=== PATIENT | female | born 1990 | race Caucasian/White ===

== ENCOUNTER 2017-05-27 10:25 | Inpatient (IN) | payer MEDICAID ==
[~2017-05-27] VITALS: Ht 165.1 cm; Wt 56.7 kg
--- NOTE | 2017-05-27 10:55 | NUR ---
LOW BACK PAIN X 2 WKS, DENEIS DYSURIA, NO HEMATURIA. ORAL TEMP-102 'F COLD SWEATS, HEADACHE X 2 DAYS. H/O KIDNEY REFLUX DSE A KID, NAD NOTED, VSS, RESP EVEN AND UNLABORED, PT WAS PUT ON MONITOR AND HOSPITAL GOWN, WAITING FOR MD ORDER.
[2017-05-27] MEDS ORDERED: ONDANSETRON HCL/PF 4 MG/2 ML VIAL IVP ONE (11:30)
[2017-05-27] MEDS ORDERED: IV NS 0.9% 1,000 ML BAG IV ONE (11:30)
[2017-05-27] MEDS ORDERED: MORPHINE SULFATE INJ 2 MG/ML DISP.SYRIN IV ONE (11:30)
[2017-05-27] MEDS ORDERED: MORPHINE SULFATE INJ 4 MG/ML DISP.SYRIN ONE (11:41)
[2017-05-27] MEDS ORDERED: ONDANSETRON HCL/PF 4 MG/2 ML VIAL ONE (11:41)
[2017-05-27 11:45] LABS: APPEARANCE,URINE Clear (CLEAR); BILIRUBIN,URINE Negative (NEGATIVE); BLOOD, URINE Moderate Ery/uL (NEGATIVE); KETONES,URINE Negative (NEGATIVE); LEUKOCYTE ESTERASE ,URINE Negative (NEGATIVE); NITRITE, URINE Negative (NEGATIVE); PROTEIN,URINE Negative (NEGATIVE); UGLUCOSE Negative (NEGATIVE); UROBILINOGEN,URINE 0.2 EU/dL (0.2)
[2017-05-27 11:46] LABS: COLOR,URINE STRAW (YELLOW)
[2017-05-27 11:52] LABS: BASOPHILS % (AUTO) 0.3 % (0.0-2.0); EOSINOPHILS % (AUTO) 0.2 % (0.0-6.0); HEMATOCRIT 40 % (33-45); HEMOGLOBIN 13.7 g/dL (11.5-14.8); LYMPHOCYTES % (AUTO) 65.1 % (20.0-44.0); MEAN CORPUSCULAR HGB CONC 34 g/dl (31.0-36.0); MEAN CORPUSCULAR VOLUME 87 fL (82-100); MONOCYTES # (AUTO) 0.4 /CMM (0.1-1.30); MONOCYTES % (AUTO) 32.3 % (2.0-12.0); NEUTROPHILS % (AUTO) 2.1 % (43.0-81.0); PLATELET COUNT (AUTO) 109 /CMM (150-450); RDW COEFFICIENT OF VARIATION 11.3 (11.5-15.0)
[2017-05-27 11:58] LABS: WHITE BLOOD COUNT (AUTO) 1.4 K/uL (4.3-11.0)
[2017-05-27 12:04] LABS: BACTERIA,URINE Few /HPF (None Seen); SQUAMOUS EPITHELIAL CELL,UR Few /HPF (None Seen); WBC,URINE 0-3 /HPF (0-3)
[2017-05-27 12:04] LABS: CALCIUM, SERUM 9.3 mg/dL (8.5-10.1); CREATININE 0.9 mg/dL (0.6-1.3); POTASSIUM 3.7 mmol/L (3.5-5.1)
[2017-05-27 13:50] LABS: NEUTROPHILS % (MANUAL) 2 (42-76); REACTIVE LYMPHOCYTES 27 % (0-0)
[2017-05-27 13:51] LABS: LYMPHOCYTES % (MANUAL) 45 % (16-48); MONOCYTES % (MANUAL) 26 % (0-11.0)
--- NOTE | 2017-05-27 14:09 | NUR ---
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
--- NOTE | 2017-05-27 14:18 | NUR ---
CALLED NURSING SUP. FOR MS BED
[2017-05-27] MEDS ORDERED: CEFEPIME 1 GM in IV D5W 50 ML IV ONE (14:30)
[2017-05-27] MEDS ORDERED: oxyCODONE/APAP (5/325 MG) 1 UDTAB TABLET ONE (15:08)
--- NOTE | 2017-05-27 15:15 | NUR ---
PT IS FEBRILE AND C/O 8/10 GENERALIZED PAIN. MARSII CIPHER EXPERT AWARE. [facility] [place] PER VERBAL ORDER.
--- NOTE | 2017-05-27 15:47 | NUR ---
PT TO RADIOLOGY FOR ABDOMINAL CT SCAN W/ CONTRAST VIA WC.
[2017-05-27] MEDS ORDERED: CT SWABBABLE VALVE TRANS SET 1 EA INFUS.SET MC ONE (15:53)
[2017-05-27] MEDS ORDERED: IOHEXOL-300 100 ML VIAL IV ONE (15:53)
[2017-05-27] MEDS ORDERED: IV NS 0.9% 250 ML IV ONE (15:53)
[2017-05-27] MEDS ORDERED: oxyCODONE/APAP (5/325 MG) 1 UDTAB TABLET PO ONE (16:00)
--- NOTE | 2017-05-27 16:08 | NUR ---
REPORT GIVEN TO SANTI. PT AWAITINGTRANSFER TO FLOOR.
--- NOTE | 2017-05-27 16:30 | NUR ---
RN OPENING NOTES. PT RECEIVED A&0X3, TOLERATING ROOM AIR WITHOUT DISTRESS. PT REPORTS NO PAIN AT THIS TIME. PT WITH IVC AT L AC INTACT AND SALINE FLUSH PATENT. PT VITALS WNL. NOTIFIED OF PT'S ARRIVAL, AWAITING FOR ORDERS. PT BED IN LOWEST LOCKED POSITION WITH HANDRAILSX2 AND CALL DANG WITHIN REACH. PT BRIEFED ON TODAY'S POC AND IS WITHOUT CONCERN OR COMPLAINT AT THIS TIME.
[2017-05-27] MEDS ORDERED: FEE PK DOSING 1 MIN EA MC ONE (18:18)
[2017-05-27] MEDS ORDERED: ENOXAPARIN SODIUM 40 MG/0.4 ML DISP.SYRIN SQ SCH (18:30)
[2017-05-27] MEDS ORDERED: VANCOMYCIN 1 GM in IV D5W 250 ML IV SCH (18:30)
[2017-05-27] MEDS ORDERED: ONDANSETRON HCL/PF 4 MG/2 ML VIAL IVP PRN (18:30)
[2017-05-27] MEDS ORDERED: Z GUARD REMEDY 2 OZ OINT TP PRN (18:30)
[2017-05-27] MEDS ORDERED: HYDROCODONE/APAP 5/325MG 1 EACH TABLET PO PRN (18:30)
[2017-05-27 18:31] LABS: ALBUMIN 3.9 g/dL (3.4-5.0); BILIRUBIN,DIRECT 0.2 mg/dL (0.0-0.2); BILIRUBIN,TOTAL 0.9 mg/dL (0.2-1.0); TOTAL PROTEIN, SERUM 8.1 g/dL (6.4-8.2)
[2017-05-27 18:34] VITALS: BP 129/67
--- NOTE | 2017-05-27 18:50 | NUR ---
RN CLOSING NOTES. PT REMAINS A&0X3, TOLERATING ROOM AIR WITHOUT DISTRESS. PT REPORTS NO PAIN AT THIS TIME. PT WITH IVC AT L AC INTACT AND SALINE FLUSH PATENT. PT WITH MD AT THIS TIME. PT BED IN LOWEST LOCKED POSITION WITH HANDRAILSX2 AND CALL DANG WITHIN REACH. WILL ENDORSE TO NIGHT NURSE AT BEDSIDE FOR [facility].
[2017-05-27] MEDS: IV NS 0.9% 1,000 ML IV PRN (19:13)
--- NOTE | 2017-05-27 19:30 | NUR ---
RN NOTE; RECEIVED PT IN BED AWAKE AND ALERT, ANXIOUS, BREATHING EVENLY. DENIED SOB. DENIED COUGH. W/ C/O HEADACHE. SKIN WAR AND DRY, PLACED PT ON IV ATB AND IVF . NEEDS ATTENDED. ASSISTED W/ ADLS. CALL LIGHT WITHIN REACH, WILL CONT TO MONITOR, SEEN BY CAMRON ZEPEDA NP W/ AN ORDER FOR RAPID INFLUENZA AND RAPID STREP AND TO D/C LOVENOX. WILL INPUT THE ORDER.
[2017-05-27 20:00] VITALS: BP 115/65
[2017-05-27] MEDS: IBUPROFEN 600 MG TABLET PO PRN (20:04)
--- NOTE | 2017-05-27 20:05 | NUR ---
MOTRIN GIVEN ORDERED FOR C/O MILD HEADACHE. WILL CONT TO MONITOR ,.
--- NOTE | 2017-05-27 20:39 | NUR ---
W/ C/O GENERALIZED ITCHINESS AFTER RECEIVING VANCOMYCIN, VACO IS ALMOST FINISHED. 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
--- NOTE | 2017-05-27 20:44 | NUR ---
GOT A CALL BACK FROM LAVONNE W/ A NEW ORDER FOR BENADRYL PRN. AND TO Brenda/C [place],
[2017-05-27] MEDS: diphenhydrAMINE HCL 50 MG/ML VIAL IV PRN (20:53)
[2017-05-27] MEDS: PIPERACILLIN /TAZOBACTAM 3.375 G in IV D5W 50 ML IV SCH (23:31)
[2017-05-28] MEDS ORDERED: VANCOMYCIN 0.75 GM in IV D5W 250 ML IV SCH (05:00)
[2017-05-28] MEDS: IV NS 0.9% 1,000 ML IV PRN (05:24)
[2017-05-28] MEDS: PIPERACILLIN /TAZOBACTAM 3.375 G in IV D5W 50 ML IV SCH ×2 (05:24→12:18)
[2017-05-28] MEDS: IBUPROFEN 600 MG TABLET PO PRN ×2 (05:29→20:51)
--- NOTE | 2017-05-28 05:30 | NUR ---
MOTRIN GIVEN ORDERED FOR C/O MILD THROAT PAIN. PT WAS PROVIDED W/ SOME SNACKS TO PREVENT GI UPSET. WILL CONT TO MONITOR ,.
--- NOTE | 2017-05-28 06:25 | NUR ---
RN NOTE; PT IN BED SLEEPING, AROUSES EASILY. BREATHING EVENLY. NO SOB. NO ACUTE EVENT DURING THE NIGHT. REMAINED AFEBRILE. ON ONGOING IVF HYDRATION ANGELA WELL. NEEDS ATTENDED .ASSISTED W/ ADLS. CALL LIGHT WITHIN REACH, WILL CONT TO MONITOR AND WILL ENDORSE TO AM SHIFT FOR WHITLEY.
[2017-05-28 06:45] LABS: ALBUMIN 2.8 g/dL (3.4-5.0); CALCIUM, SERUM 7.9 mg/dL (8.5-10.1); CREATININE 0.6 mg/dL (0.6-1.3); MAGNESIUM 1.8 mg/dL (1.8-2.4); PHOSPHORUS 2.5 mg/dL (2.5-4.9); POTASSIUM 3.5 mmol/L (3.5-5.1); TOTAL PROTEIN, SERUM 6.1 g/dL (6.4-8.2)
--- NOTE | 2017-05-28 07:52 | NUR ---
RN OPENING NOTES RECEIVED PT. A/OX4, PT IS STABLE AND RESTING IN BED. NO S/S OF RESP DISTRESS OR SOB. PT HAS C/O PAIN 8/10 IN THROAT, WILL MANAGE PHARMACOLOGICALLY. PER MARKETING REGIONAL CONSULTANT REPORT, PT HAD REACTION TO VANCO ADMIN ON 05/27/17. PT REPORTS NO FURTHER ITCHING/REDNESS/REACTION SX AT THIS TIME, WILL CONTINUE TO MONITOR. IV ACCESS LEFT AC, 20G INFUSING NS @ 125 ML/HR. SAFETY MEASURES IN PLACE, CALL LIGHT WITHIN REACH. WILL CONTINUE TO MONITOR.
[2017-05-28 08:00] VITALS: BP 102/57
[2017-05-28 08:56] LABS: BASOPHILS % (AUTO) 0.4 % (0.0-2.0); EOSINOPHILS % (AUTO) 0.4 % (0.0-6.0); HEMATOCRIT 31 % (33-45); HEMOGLOBIN 11.1 g/dL (11.5-14.8); LYMPHOCYTES # (AUTO) 1.4 /CMM (0.8-4.8); MEAN CORPUSCULAR HGB CONC 35 g/dl (31.0-36.0); MEAN CORPUSCULAR VOLUME 89 fL (82-100); MONOCYTES # (AUTO) 0.4 /CMM (0.1-1.30); MONOCYTES % (AUTO) 19.1 % (2.0-12.0); NEUTROPHILS # (AUTO) 0.1 /CMM (1.8-8.9); NEUTROPHILS % (AUTO) 5.1 % (43.0-81.0); PLATELET COUNT (AUTO) 93 /CMM (150-450); RDW COEFFICIENT OF VARIATION 12.5 (11.5-15.0); RED BLOOD CELL COUNT(AUTO) 3.53 MIL/uL (4.0-5.2)
[2017-05-28 09:12] LABS: WHITE BLOOD COUNT (AUTO) 1.8 K/uL (4.3-11.0)
[2017-05-28 12:04] LABS: LYMPHOCYTES % (MANUAL) 51 % (16-48); MONOCYTES % (MANUAL) 19 % (0-11.0); NEUTROPHILS % (MANUAL) 2 (42-76); REACTIVE LYMPHOCYTES 28 % (0-0)
[2017-05-28] MEDS: diphenhydrAMINE HCL 50 MG/ML VIAL IV PRN ×2 (13:14→20:56)
[2017-05-28] MEDS: ACETAMINOPHEN 325 MG TABLET PO PRN ×2 (15:21→23:41)
[2017-05-28 16:00] VITALS: BP 108/66
[2017-05-28] MEDS: MENTHOL/CETYLPYRD (CEPACOL) 1 LOZ LOZENGE PO PRN ×2 (17:32→20:52)
--- NOTE | 2017-05-28 18:30 | NUR ---
RN CLOSING NOTES PT IN BED RESTING. NO S/S OF RESP DISTRESS OR SOB. NO C/O PAIN AT THIS TIME. IV ACCESS ON LEFT AC REMOVED, INSERTED 22G ON RIGHT FA INFUSING NS AT 125 ML/HR. CURRENTLY AWAITING RESULTS FOR THROAT CULTURE AND MONO TEST. NEW PO ABX ORDERED, ZOSYN DISCONTINUED. SAFETY MEASURES IN PLACE, CALL LIGHT WITHIN REACH. WILL ENDORSE TO AUDIENCE DEVELOPMENT MANAGER FOR [facility].
[2017-05-28 19:25] LABS: MONOTEST NEGATIVE (NEGATIVE)
--- NOTE | 2017-05-28 19:45 | NUR ---
RECEIVED PT IN BED. BREATHING EVENLY. NO SOB. NAD .NO C/O PAIN OR DISCOMFORT . ON ONGOING IVF HYDRATION. BED LOW LOCKED. CALL LIGHT WITHIN REACH, WILL CONT TO MONITOR
[2017-05-28 20:00] VITALS: BP 101/55
[2017-05-28] MEDS: AMOXICILLIN TRIHYDRATE 250 MG CAPSULE PO SCH (20:51)
--- NOTE | 2017-05-28 20:52 | NUR ---
MOTRIN GIVEN FOR TEMP: 101. CEPACOL GIVEN FOR C/O SORE THROAT. SNACKS WERE PROVIDED, WILL CONT TO MONITOR.
--- NOTE | 2017-05-28 20:57 | NUR ---
BENADRYL GIVEN FOR C/O ITCHINESS. WILL CONT TO MONITOR,
--- NOTE | 2017-05-28 23:44 | NUR ---
tylenol given for c/o mild headache. will cont to monitor
[2017-05-29] MEDS: IV NS 0.9% 1,000 ML IV PRN (03:12)
[2017-05-29] MEDS: AMOXICILLIN TRIHYDRATE 250 MG CAPSULE PO SCH ×3 (05:40→20:12)
--- NOTE | 2017-05-29 06:23 | NUR ---
PT IN BED DOZING INTERMITTENTLY. ANGRY AND ANXIOUS AT TIMES. BREATHING EVENLY. NO SOB. NO COUGH. W/ EPISODES OF NIGHT SWEAT. REMAINED AFEBRILE AFTER RECEIVING THE MOTRIN. ON ONGOING IVF HYDRATION. NEEDS ATTENDED. BED LOW LOCKED .CALL LIGHT WITHIN REACH, WILL CONT TO MONITOR AND WILL ENDORSE TO AM SHIFT FOR WHITLEY.
[2017-05-29 07:30] VITALS: BP 106/60
--- NOTE | 2017-05-29 07:30 | NUR ---
RN OPENING NOTES RECEIVED PT. A/OX4, PT IS STABLE AND RESTING IN BED. NO S/S OF RESP DISTRESS OR SOB. PT HAS C/O PAIN 8/10 IN THROAT, WILL MANAGE PHARMACOLOGICALLY. TEMPERATURE TAKEN AND NO FEVER NOTED. IV ACCESS LOCATED ON RIGHT FA, 22G INFUSING NS @ 125 ML/HR. SAFETY MEASURES IN PLACE, CALL LIGHT WITHIN REACH. WILL CONTINUE TO MONITOR.
[2017-05-29 10:32] LABS: BASOPHILS % (AUTO) 0.2 % (0.0-2.0); EOSINOPHILS % (AUTO) 1.4 % (0.0-6.0); HEMATOCRIT 30 % (33-45); HEMOGLOBIN 10.6 g/dL (11.5-14.8); LYMPHOCYTES # (AUTO) 0.9 /CMM (0.8-4.8); LYMPHOCYTES % (AUTO) 54.5 % (20.0-44.0); MEAN CORPUSCULAR HGB CONC 35 g/dl (31.0-36.0); MEAN CORPUSCULAR VOLUME 89 fL (82-100); MONOCYTES # (AUTO) 0.2 /CMM (0.1-1.30); MONOCYTES % (AUTO) 13.9 % (2.0-12.0); NEUTROPHILS # (AUTO) 0.5 /CMM (1.8-8.9); PLATELET COUNT (AUTO) 123 /CMM (150-450); RDW COEFFICIENT OF VARIATION 12.3 (11.5-15.0); RED BLOOD CELL COUNT(AUTO) 3.37 MIL/uL (4.0-5.2)
[2017-05-29 10:33] LABS: WHITE BLOOD COUNT (AUTO) 1.7 K/uL (4.3-11.0)
[2017-05-29 13:13] LABS: BAND % (MANUAL) 2 % (0.0-5.0); LYMPHOCYTES % (MANUAL) 71 % (16-48); NEUTROPHILS % (MANUAL) 21 (42-76)
[2017-05-29 13:14] LABS: MONOCYTES % (MANUAL) 6 % (0-11.0)
[2017-05-29 16:00] VITALS: BP 106/65
--- NOTE | 2017-05-29 18:31 | NUR ---
RN CLOSING NOTE PT IN BED RESTING. NO S/S OF RESP DISTRESS OR SOB. PT HAS NO C/O PAIN AT THIS TIME. PER AM LABS, PT LABS EXHIBIT PANTOCYTOPENIA, WITH WBC CONSIDERED TO BE CRITICALLY LOW AT 1.7, MD AWARE. PT TO HAVE PHYSICIAN CONSULT FOR HEMATOLOGY WITH DR. DYE. CONSULT WITH INFECTION SPEC DR. MARY LOU BROUSSARD, STATES VIRAL INFECTION PROBABLE CAUSE OF PANTOCYTOPENIA. PT COMPLAINED OF DISCOMFORT AND MILD PAIN AT IV INSERTION SITE. IV ACCESS REMOVED. PT CONTINUALLY REFUSING INSERTION OF NEW ACCESS, AWARE. ALL PT NEEDS ANTICIPATED AND MET, SAFETY MEASURES IN PLACE, CALL LIGHT IN REACH. WILL ENDORSE TO WILLOW ANALYST FOR WHITLEY.
--- NOTE | 2017-05-29 19:30 | NUR ---
MS RN OPENING NOTE PT IS STANDING AT BED SIDE. A/O X4 ABLE TO MAKE NEEDS KNOWN. NO SIGNS OF SOB OR DISTRESS, BREATHING EVENLY AND UNLABORED ON RA. PT HAS NO IV, AWARE. DENIES PAIN AT THIS TIME. BED IS IN LOW AND LOCKED POSITION, CALL LIGHT WITHIN REACH. WILL CONTINUE TO MONITOR PT
[2017-05-29 20:00] VITALS: BP 112/69
[2017-05-29] MEDS: ACETAMINOPHEN 325 MG TABLET PO PRN (23:36)
[2017-05-30] MEDS: AMOXICILLIN TRIHYDRATE 250 MG CAPSULE PO SCH ×3 (05:09→21:40)
--- NOTE | 2017-05-30 06:17 | NUR ---
MS RN CLOSING NOTE PT IS IN BED SLEEPING, EASILY AROUSED. NO SIGNS OF SOB OR DISTRESS, BREATHING EVENLY AND UNLABORED ON RA. DENIES PAIN. NO ACUTE CHANGES THROUGHOUT THE SHIFT. ALL NEEDS WERE ANTICIPATED AND MET. BED IS IN LOW AND LOCKED POSITION. CALL LIGHT WITHIN REACH. WILL ENDORSE TO DAYSHIFT
--- NOTE | 2017-05-30 07:05 | NUR ---
RN NOTES PT IS SITTING UP IN BED, AWAKE AND ALERT. PT ON RA, RESPIRATIONS ARE EVEN AND UNLABORED. NO IV ACCESS. NO SIGNS OF DISTRESS NOTED. SAFETY MEASURES ARE IN PLACE, CALL LIGHT IS IN REACH. WILL CONTINUE TO MONITOR.
[2017-05-30 07:29] LABS: BASOPHILS % (AUTO) 0.5 % (0.0-2.0); EOSINOPHILS % (AUTO) 1.7 % (0.0-6.0); HEMATOCRIT 31 % (33-45); HEMOGLOBIN 10.9 g/dL (11.5-14.8); LYMPHOCYTES % (AUTO) 61.6 % (20.0-44.0); MEAN CORPUSCULAR HGB CONC 35 g/dl (31.0-36.0); MEAN CORPUSCULAR VOLUME 89 fL (82-100); MONOCYTES # (AUTO) 0.2 /CMM (0.1-1.30); NEUTROPHILS # (AUTO) 0.4 /CMM (1.8-8.9); NEUTROPHILS % (AUTO) 23.2 % (43.0-81.0); PLATELET COUNT (AUTO) 170 /CMM (150-450); RDW COEFFICIENT OF VARIATION 12.6 (11.5-15.0)
[2017-05-30 07:47] LABS: WHITE BLOOD COUNT (AUTO) 1.6 K/uL (4.3-11.0)
[2017-05-30 07:51] LABS: THYROID STIMULATING HORMONE 1.405 uIU/mL (0.358-3.74)
[2017-05-30 08:00] VITALS: BP_SYST 106; BP_DIAS 64; BP_DIAS 66
[2017-05-30 09:50] LABS: EOSINOPHILS % (MANUAL) 1 % (0-4); LYMPHOCYTES % (MANUAL) 71 % (16-48); MONOCYTES % (MANUAL) 10 % (0-11.0); NEUTROPHILS % (MANUAL) 18 (42-76)
[2017-05-30 09:58] LABS: CMV, IgM <30.0 AU/mL (0.0-29.9)
[2017-05-30] MEDS: ACETAMINOPHEN 325 MG TABLET PO PRN (15:59)
[2017-05-30 16:00] VITALS: BP_SYST 110; BP_SYST 92; BP_DIAS 48; BP_DIAS 60
[2017-05-30 16:15] LABS: QFT MITOGEN VALUE 9.26 IU/mL (.); QFT TB AG MINUS NIL VALUE <0.00 IU/mL (.); QFT TB AG VALUE 0.14 IU/mL (.); QFT TB GOLD Negative (Negative)
--- NOTE | 2017-05-30 18:13 | NUR ---
RN NOTES PT IS SITTING UP IN BED, ALERT AND ORIENTED. PT ON RA, RESPIRATIONS ARE EVEN AND UNLABORED. ALL MEDS GIVEN ORDERED. PT NEEDS ANTICIPATED FOR AND MET. TYLENOL GIVEN AT 1600 FOR HEADACHE. NO SIGNS OF DISTRESS NOTED. SAFETY MEASURES ARE IN PLACE, CALL LIGHT IS IN REACH. WILL ENDORSE TO TIP OUT WORKER RN FOR CONTINUITY OF CARE.
--- NOTE | 2017-05-30 19:30 | NUR ---
RN NOTES RECEIVED PT. AWAKE ON BED, A/OX4, AMBULATORY, NO IV ACCESS- MD AWARE, DENIES PAIN, NO SWOB, CALL LIGHT WITHIN REACH, SIDERAILSUPX2, CONTINUE TO MONITOR
[2017-05-30 20:00] VITALS: BP 115/71
--- NOTE | 2017-05-30 23:00 | NUR ---
RN NOTES SPOKE TO CAMRON WELCH AND GOT AN ORDER OF SLEEPING PILL, PT ORDERED AMBIEN 5 MG PO PRN, ORDER NOTED AND CARRIED OUT
[2017-05-30] MEDS ORDERED: ZOLPIDEM TARTRATE 5 MG TABLET PO PRN (23:30)
[2017-05-31] MEDS: AMOXICILLIN TRIHYDRATE 250 MG CAPSULE PO SCH ×2 (06:07→13:20)
--- NOTE | 2017-05-31 06:28 | NUR ---
RN NOTES AWAKE, DENIES PAIN, NO SOB, MORNING CARE RENDERED, CALL LIGHT WITHIN REACH, SIDERAILSUPX2, PT. NEEDS ATTENDED
[2017-05-31 08:00] VITALS: BP 97/63
--- NOTE | 2017-05-31 08:00 | NUR ---
RN MS OPENING NOTES RECEIVED PATIENT IN BED, AWAKE,ALERT AND ORIENTED X4 , RESPIRATIONS EVEN AND UNLABORED, DENIES ANY COMPLAINTS OF PAIN OR DISCOMFORT AT THIS TIME. SAFETY MEASURES IN PLACE, CALL LIGHT KEPT WITHIN REACH.
--- NOTE | 2017-05-31 08:00 | NUR ---
MS RN AM NOTES RECEIVED PT. A/OX4, PT IS STABLE AND RESTING IN BED WATCHING TV. NO C/O PAIN OF RESP DISTRESS OR SOB. NO IV ACCESS -PT REFUSES IV ACCESS, AWARE.WITH BRP.SKIN INTACT.SAFETY MEASURES IN PLACE, CALL LIGHT WITHIN REACH.STILL AWAITING FOR HIV AND OTHER VIRUS WORK UP RESULTS. WILL CONTINUE TO MONITOR.
--- NOTE | 2017-05-31 08:30 | NUR ---
CALLED LAB [facility] AND FOLLOWED UP ON THE PENDING HIV AND VIRUS WORK UP RESULTS WHO STATED THAT IT WILL TAKE 5 MORE DAYS FOR THE TEST RESULTS.
[2017-05-31 11:13] LABS: *EBV AB VCA, IgM <36.0 U/mL (0.0-35.9)
[2017-05-31 12:11] LABS: BASOPHILS % (AUTO) 0.3 % (0.0-2.0); EOSINOPHILS % (AUTO) 1.5 % (0.0-6.0); HEMATOCRIT 35 % (33-45); LYMPHOCYTES # (AUTO) 1.1 /CMM (0.8-4.8); LYMPHOCYTES % (AUTO) 44.7 % (20.0-44.0); MEAN CORPUSCULAR HGB CONC 35 g/dl (31.0-36.0); MEAN CORPUSCULAR VOLUME 89 fL (82-100); MONOCYTES # (AUTO) 0.4 /CMM (0.1-1.30); MONOCYTES % (AUTO) 14.9 % (2.0-12.0); NEUTROPHILS # (AUTO) 0.9 /CMM (1.8-8.9); NEUTROPHILS % (AUTO) 38.6 % (43.0-81.0); PLATELET COUNT (AUTO) 299 /CMM (150-450); RDW COEFFICIENT OF VARIATION 12.6 (11.5-15.0); RED BLOOD CELL COUNT(AUTO) 3.92 MIL/uL (4.0-5.2); WHITE BLOOD COUNT (AUTO) 2.4 K/uL (4.3-11.0)
--- NOTE | 2017-05-31 12:59 | NUR ---
PT WANTS TO GO HOME TAMIR SAYING ITS USELESS STAYING IN THE HOSPITAL FOR PENDING LAB RESULTS WHICH WILL TAKE 5 DAYS FOR THE RESULT.DR BELL MADE AWARE AND WILL SEE THE PT SOON.PT MADE AWARE,PT REFUSES TO GO AMA.
[2017-05-31 13:30] LABS: LYMPHOCYTES % (MANUAL) 41 % (16-48); MONOCYTES % (MANUAL) 19 % (0-11.0); NEUTROPHILS % (MANUAL) 40 (42-76)
--- NOTE | 2017-05-31 14:29 | NUR ---
DISCHARGED HOME WITH STABLE V/S.PT IS DRIVING HOME.DISCHARGE INSTRUCTIONS AND PRESCRIPTION GIVEN TO THE PT.NO IV ACCESS.ID BAND REMOVED.DENIES ANY PAIN OR DISTRESS.
[2017-05-31 18:18] LABS: *HIV-1 RNA BY PCR <20 copies/mL (.)
== END 2017-05-31 14:30 | disposition home or self-care (01) | DRG 872 ==
LOC: ER 10:26 → MED 15:50
PROVIDERS: ADMIT Nurse Practitioner Acute Care; ATTEND Nurse Practitioner Acute Care
DX: A41.9 Sepsis, unspecified organism (principal); D61.818 Other pancytopenia; B25.9 Cytomegaloviral disease, unspecified; J02.0 Streptococcal pharyngitis; E86.0 Dehydration; Z98.1 Arthrodesis status; D72.820 Lymphocytosis (symptomatic); D72.821 Monocytosis (symptomatic); Z87.448 Personal history of other diseases of urinary system; M54.5 Low back pain; K59.00 Constipation, unspecified; Z88.1 Allergy status to other antibiotic agents; K21.9 Gastro-esophageal reflux disease without esophagitis
CPT/HCPCS: 36415; 71045-TC; 80048-TC; 80053-TC; 80061-TC; 80074; 80076-TC; 81000-TC; 82728-TC; 82746; 83540-TC; 83605-TC; 83615-TC; 83735-TC; 84100-TC; 84443-TC; 84703-TC; 85025-TC; 86308-TC; 86403-TC; 86644; 86645; 86663; 86664; 86665; 87040-TC; 87070-TC; 87081-TC; 87086-TC; 87400; 87536; 87899; 93307-TC; A4606; J0692; J1200; J2270; J2405; J2543; J3370; J7030; J7050; J7060; Q9967; Z7610